=== PATIENT | male | born 1955 | race Asian ===

== ENCOUNTER → 2024-11-24 | Outpatient (CLI) | payer OTHER, MEDICAID, SELFPAY ==
--- NOTE | 2024-11-24 | XR_ITS ---
Examination: CT chest, without intravenous contrast. Sagittal and coronal 2-D reconstructions. Exam date and time: November 24, 2024 1224 hours INDICATIONS: Smoking history years, 4 mm noncalcified pulmonary nodule right lower lobe on CT chest 03/18/2023 CTDI:vol (mGy) 9.19 DLP: (mGycm) 353 Technique: Multiple 3.0 mm axial sections of the chest to been obtained. Bone and lung density settings are obtained. Sagittal and coronal 2-D reconstructions have been obtained. Low dose protocols were performed. One or more of the following dose reduction techniques were used; automated exposure control, adjustment of the mA and/or KV according to patient size, use of iterative reconstruction technique. Findings: Mild aneurysmal dilatation ascending thoracic aorta transverse dimension 4.1 cm Heavy coronary artery calcification No paratracheal tracheobronchial or bronchopulmonary adenopathy 3 mm pulmonary nodule right lower lobe No new pulmonary nodules No visualized liver or splenic lesion IMPRESSION: Stable 3 mm pulmonary nodule right lower lobe, no new pulmonary nodules
== END | disposition home or self-care (01) ==
PROVIDERS: PCP Nurse Practitioner Family; Referring Provider Nurse Practitioner Family; Visit Provider Nurse Practitioner Family
DX: R91.1 Solitary pulmonary nodule (principal)
CPT/HCPCS: 71250